=== PATIENT | female | born 1955 | race Caucasian/White ===

== ENCOUNTER 2016-09-09 18:35 | Emergency (ER) ==
[2016-09-09 18:40] VITALS: BP 178/82; TEMP 97.7; BMI 34.7
[2016-09-09] MEDS ORDERED: DILAUDID 1 MG/ML SYRINGE IM STA (18:57)
[2016-09-09] MEDS ORDERED: PHENERGAN 25 MG/ML VIAL IM STA (18:57)
--- NOTE | 2016-09-09 19:00 | ED.PDOC ---
General ED Provider: Dr. MELANI STOLL-ER Chief Complaint: Back Pain Stated Complaint: my back is acting up--i will see pain managment this week-- denies urinary symptoms or blood in the urine Time Seen by Physician: 18:59 Mode of Arrival: Walk-In Information Source: Patient Exam Limitations: No limitations Primary Care Provider: JAS NATARAJAN Nursing and Triage Documentation Reviewed and Agree: Yes Musculoskeletal Complaint Exam - Back Pain Complaint/Exam Mechanism of Injury: Reports: No known trauma Onset/Duration: several days Symptoms Are: Still present Timing: Constant Initial Severity: Mild Current Severity: Moderate Location: Reports: Discrete (lumbar spine) Character: Reports: Dull, Aching Aggravating: Reports: Movements, Lifting, Bending, Walking Alleviating: Reports: None Associated Signs and Symptoms: Denies: Swelling, Redness, Bruising, Fever, Weakness, Numbness, Tingling, Abdominal pain, Flank pain, Bladder incontinence, Bowel incontinence, Weight loss, Pain with weight bearing Epidural Abcess Risk Factors: Reports: None Focal Tenderness: Yes Paraspinal Muscle Tenderness: Yes Paraspinal Muscle Spasm: No Scoliosis: No Lordosis: No Kyphosis: No SLR Test: Right Negative, Left Negative Hip Motion Testing Pain: Right Negative, Left Negative Focal Weakness: Present: None Focal Sensory Loss: Present: None Gait: Present: Abnormal Differential Diagnoses: Strain, Sprain, Other (chronic low back pain) Review of Systems - Review Of Systems Constitutional: Reports: No symptoms Eyes: Reports: No symptoms Ears, Nose, Mouth, Throat: Reports: No symptoms Respiratory: Reports: No symptoms Cardiac: Reports: No symptoms GI: Reports: No symptoms : Reports: No symptoms Musculoskeletal: Reports: Back pain Skin: Reports: No symptoms Neurological: Reports: No symptoms Endocrine: Reports: No symptoms Hematologic/Lymphatic: Reports: No symptoms All Other Systems: Reviewed and Negative Past Medical History - Past Medical History Endocrine: Reports: DM 1, Dyslipidemia Cardiovascular: Reports: Hypertension, CHF (Peripheral artery disease) Respiratory: Reports: COPD, Asthma, Bronchitis, Pneumonia (05/07/13 Community acquired pneumonia) Hematological: Reports: None Gastrointestinal: Reports: GERD Genitourinary: Reports: UTI (pyelonephritis) Neuro/Psych: Reports: Anxiety, Depression, Other (disk disease.-NEUROPATHY) Musculoskeletal: Reports: Back Pain (chronic low back pain--followed by pain managment) Cancer: Reports: None Last Menstrual Period: menopause Other Pertinent Past Medical History: Furunculosis and Carbunculosis, Chronic Dysphagia,Peripheral artery disease - Surgical History General Surgical History: Reports: Orthopedic (Fracture of proximal humerus left , SEPTEMBER 2013), Other (STENT IN PELVIS (femoral stent)) - Family History Family History: Reports: Heart, Hypertension, Diabetes, Kidney, Other (mobidly obese) - Social History Smoking Status: Current every day smoker, Light tobacco smoker Hx Substance Use: No Alcohol Screening: None Lives: With family Physical Exam - Physical Exam Appearance: Well-appearing, No pain distress, Well-nourished Pain Distress: Moderate Eyes: ZARA, EOMI, Conjunctiva clear ENT: Ears normal, Nose normal, Oropharynx normal Neck: Supple Respiratory: Airway patent, Breath sounds clear, Breath sounds equal, Respirations nonlabored Cardiovascular: RRR, Pulses normal, No rub, No murmur GI/: Soft, Nontender, No masses, Bowel sounds normal, No Organomegaly Musculoskeletal: Normal strength, ROM intact, No edema, No calf tenderness Skin: Warm, Dry, Normal color Neurological: Sensation intact, Motor intact, Reflexes intact, Cranial nerves intact, Alert, Oriented Psychiatric: Affect appropriate, Mood appropriate Critical Care Note - Critical Care Note Total Time (mins): 0 Course - Course Orders, Labs, Meds: Orders Category Date Time Status Hydromorphone HCl [Dilaudid 1 mg/ml Syringe] MEDS 09/09/16 18:57 Stat 1 mg IM ONCE STA Promethazine HCl [Phenergan 25 mg/ml Vial] MEDS 09/09/16 18:57 Stat 25 mg IM ONCE STA Vital Signs: Temp Pulse Resp BP Pulse Ox 09/09/16 18:35 97.7 F 81 20 178/82 H 93 L Departure - Departure Time of Disposition: 19:01 Disposition: HOME SELF-CARE Discharge Problem: Chronic low back pain Qualifiers: Back pain laterality: midline Sciatica presence: without sciatica Qualifier Code: (M54.5) Low back pain Instructions: Chronic Back Pain (ED) Condition: Good Pt referred to PMD for follow-up: Yes Additional Instructions: keep appt with pain management this week Allergies/Adverse Reactions: [facility]ies [facility] Adverse Reaction (Verified 09/09/16 18:41) red dye Adverse Reaction (Verified 09/09/16 18:41) Home Medications: Ambulatory Orders Albuterol Sulfate 0.083% Neb [Albuterol 0.083% Neb] 1 vial NEB RTQ8H PRN Aspirin [Aspirin EC] 325 mg PO DAILYWM 05/07/13 Clonazepam [Klonopin] 1 mg PO BID 05/07/13 Clopidogrel Bisulfate [Clopidogrel] 75 mg PO DAILY 05/07/13 Enalapril Maleate [Vasotec] 2.5 mg PO BID PRN 05/07/13 Fenofibrate,Micronized [Fenofibrate] 134 mg PO BEDTIME 05/07/13 Folic Acid/Mv,Fe,Other Min [One Daily For Women Tablet] 1 tab PO DAILY 05/07/13 Furosemide [Lasix Tab] 20 mg PO BIDAC 05/07/13 Gabapentin [Neurontin] 600 mg PO Q8H 05/07/13 Magnesium Oxide [Mag-Ox] 400 mg PO BID 05/07/13 Pantoprazole Sodium [Protonix] 40 mg PO QDAC 05/07/13 Potassium Chloride [Klor-Con 10] 10 meq PO DAILY 05/07/13 Ropinirole HCl [Requip] 0.25 mg PO TID 05/07/13 Hydrocodone Bit/Acetaminophen [[place] 10-325] 10 - 325 mg PO QID PRN 06/10/13 Albuterol Sulfate [Proair Hfa] 2 puff INH Q4H PRN 11/25/13 Fluticasone Propionate [Flonase] 2 spray NS DAILY 11/25/13 Sitagliptin Phosphate [Januvia] 1 tab PO DAILY 11/25/13 Atorvastatin Calcium [Lipitor] 20 mg PO DAILY 01/15/14 Insulin Glargine,Hum.rec.anlog [Lantus] 24 units SQ BEDTIME 04/02/14 Insulin Glargine,Hum.rec.anlog [Lantus] 24 units SQ DAILY 08/12/14 Duloxetine HCl [Cymbalta] 20 mg PO DAILY 11/19/14 Insulin Lispro [Humalog] 1 unit SUBCUT DAILY PRN 04/30/15 Disposition Discussed With: Patient
== END 2016-09-09 19:38 | disposition home or self-care (01) ==
LOC: ED 18:35
DX: M54.5 Low back pain (principal); F17.210 Nicotine dependence, cigarettes, uncomplicated
CPT/HCPCS: 96372; 99282

== ENCOUNTER 2017-03-16 13:16 | Outpatient (CLI) ==
[2017-03-16 13:38] LABS: BASOPHILS % (AUTO) 0.3 % (0.0-3.0); EOSINOPHILS # (AUTO) 0.2 K/ul (0.0-0.7); EOSINOPHILS % (AUTO) 2.4 % (0.0-7.0); HEMATOCRIT 43.3 % (37.0-47.0); HEMOGLOBIN 14.5 g/dl (12.0-16.0); IMMATURE GRANULOCYTE % (AUTO) 0.3 % (0.0-5.0); LYMPHOCYTES # (AUTO) 2.5 K/uL (0.60-3.4); LYMPHOCYTES % (AUTO) 25.5 (10.0-50.0); MEAN CORPUSCULAR HEMOGLOBIN 28.3 pg (27.0-31.0); MEAN CORPUSCULAR HGB CONC 33.5 (31.8-35.4); MEAN CORPUSCULAR VOLUME 84.6 fl (81.0-99.0); MONOCYTES # (AUTO) 0.9 K/uL (0.4-2.0); MONOCYTES % (AUTO) 9.3 (0-10); NEUTROPHILS % (AUTO) 62.2; PLATELET COUNT 226 10^3/uL (140-440); RED BLOOD COUNT 5.12 10^6/ul (4.20-5.40); WHITE BLOOD COUNT 9.65 K/ul (4.6-10.2)
[2017-03-16 13:57] LABS: ALBUMIN 3.2 g/dL (3.4-5.0); ALBUMIN/GLOBULIN RATIO 0.89; ANION GAP 12.1; BILIRUBIN,TOTAL 0.65 mg/dL (0.00-1.20); BUN/CREATININE RATIO 8.97; CALCIUM 9.6 mg/dL (8.2-10.2); CHOL/HDL RATIO 6.5 (4.5-5.5); CREATININE 0.78 mg/dL (0.60-1.30); POTASSIUM 3.1 mmol/L (3.5-5.10); TOTAL PROTEIN 6.8 g/dL (5.8-8.1)
== END 2017-03-16 13:17 | disposition home or self-care (01) ==
LOC: RAD 13:16 → LAB 13:17
PROVIDERS: ATTEND Physician Assistant
DX: I73.9 Peripheral vascular disease, unspecified (principal); R06.00 Dyspnea, unspecified; R60.0 Localized edema; E11.9 Type 2 diabetes mellitus without complications
CPT/HCPCS: 36415; 80053; 80061; 83036; 85025

== ENCOUNTER 2017-03-16 13:52 | Emergency (ER) | payer OTHER ==
[2017-03-16 13:59] VITALS: BP 144/83; TEMP 99.1; BMI 34.8
--- NOTE | 2017-03-16 14:46 | ED.PDOC ---
General ED Provider: Dr. DEANDRA ARMSTRONG JR Chief Complaint: Cough Stated Complaint: 6 days ago developed cough with sl yellow sputum--sometime is non-productive--voice is hoarse--sl fever this past weekend. [ End ]99.1 94 20 93% 144/83 8 TYLENOL NORCO for pain Time Seen by Physician: 14:45 Mode of Arrival: Walk-In Information Source: Patient Exam Limitations: No limitations Primary Care Provider: TAMERA LAIRD Nursing and Triage Documentation Reviewed and Agree: No Review of Systems - Review Of Systems Constitutional: Reports: Chills, Malaise, Weakness Eyes: Reports: No symptoms Ears, Nose, Mouth, Throat: Reports: No symptoms Respiratory: Reports: Cough, Short of air, Other Cardiac: Reports: No symptoms GI: Reports: No symptoms : Reports: No symptoms Musculoskeletal: Reports: No symptoms Skin: Reports: No symptoms Neurological: Reports: No symptoms Endocrine: Reports: No symptoms Hematologic/Lymphatic: Reports: No symptoms All Other Systems: Other Past Medical History - Past Medical History Endocrine: Reports: DM 1, Dyslipidemia Cardiovascular: Reports: Hypertension, CHF (Peripheral artery disease) Respiratory: Reports: COPD, Asthma, Bronchitis, Pneumonia (05/07/13 Community acquired pneumonia) Hematological: Reports: None Gastrointestinal: Reports: GERD Genitourinary: Reports: UTI (pyelonephritis) Neuro/Psych: Reports: Anxiety, Depression, Other (disk disease.-NEUROPATHY) Musculoskeletal: Reports: Arthritis, Back Pain (chronic low back pain--followed by pain managment) Cancer: Reports: None Last Menstrual Period: menopause Other Pertinent Past Medical History: Furunculosis and Carbunculosis, Chronic Dysphagia,Peripheral artery disease - Surgical History General Surgical History: Reports: Orthopedic (Fracture of proximal humerus left , SEPTEMBER 2013), Other (STENT IN PELVIS (femoral stent)) - Family History Family History: Reports: Heart, Hypertension, Diabetes, Kidney, Other (mobidly obese) - Social History Smoking Status: Current every day smoker, Light tobacco smoker Hx Substance Use: No Alcohol Screening: None Physical Exam - Physical Exam Appearance: Ill-appearing, Obese Ill-appearing: Moderate Pain Distress: Moderate Eyes: ZARA, EOMI, Conjunctiva clear ENT: Ears normal, Nose normal, Oropharynx normal Neck: Supple Respiratory: Airway patent, Breath sounds equal, Crackles, Rhonchi, Wheezes Cardiovascular: RRR, Pulses normal, No rub, No murmur GI/: Soft, Nontender, No masses, Bowel sounds normal, No Organomegaly Musculoskeletal: Normal strength, ROM intact, No edema, No calf tenderness Skin: Warm, Dry, Normal color Neurological: Sensation intact, Motor intact, Reflexes intact, Cranial nerves intact, Alert, Oriented Psychiatric: Affect appropriate, Mood appropriate Critical Care Note - Critical Care Note Total Time (mins): 10 Course - Course Orders, Labs, Meds: Lab Review 03/16/17 03/16/17 15:50 15:50 Urine Color Yellow Urine Clarity Clear Urine pH 5.5 Ur Specific [place] 1.020 Urine Protein 1+ Urine Glucose (UA) Negative Urine Ketones Negative Urine Blood Negative Urine Nitrite Negative Urine Bilirubin Negative Urine Urobilinogen 1.0 Ur Leukocyte Esterase Trace Urine Microscopic RBC 0-2 Urine Microscopic WBC 2-5 Ur Squamous Epith Cells 5-10 Urine Bacteria 1+ Urine Mucus 1+ Urine Opiates Screen Positive Ur Oxycodone Screen Negative Urine Methadone Screen Negative Ur Propoxyphene Screen Negative Ur Barbiturates Screen Negative U Tricyclic Antidepress Negative Ur Phencyclidine Scrn Negative Ur Amphetamine Screen Negative U Methamphetamines Scrn Negative U Benzodiazepines Scrn Negative Urine Cocaine Screen Positive U Cannabinoids Screen Negative Orders Category Date Time Status DRUG SCREEN (RAPID FOR ED) [DRUG SCREEN, URINE, RAPID] LAB 03/16/17 15:50 Completed Stat UA [URINALYSIS C & S IF INDICATED] Stat LAB 03/16/17 15:50 Completed URINE CULTURE Stat LAB 03/16/17 16:53 Received CHEST, 2 VIEWS PA & LAT Stat RADS 03/16/17 15:33 Completed Vital Signs: Temp Pulse Resp BP Pulse Ox 03/16/17 13:52 99.1 F 94 H 20 144/83 H 93 L Departure - Departure Time of Disposition: 17:20 Disposition: HOME SELF-CARE Discharge Problem: Pneumonia Instructions: How to Stop Smoking (ED) Condition: Good Pt referred to PMD for follow-up: Yes Prescriptions: Amoxicillin/Potassium Clav [Augmentin 875-125 mg Tab] 1 tab PO BIDWM #14 tablet Guaifenesin/Dm/Pseudoephedrine [Desgen Dm Tablet] 1 each PO BID PRN #30 tablet PRN Reason: Cough Allergies/Adverse Reactions: Allergies aripiprazole [From [facility]] Adverse Reaction (Verified 03/16/17 14:02) red dye Adverse Reaction (Verified 03/16/17 14:02) Home Medications: Ambulatory Orders Albuterol Sulfate 0.083% Neb [Albuterol 0.083% Neb] 1 vial NEB RTQ8H PRN Aspirin [Aspirin EC] 325 mg PO DAILYWM 05/07/13 Clonazepam [Klonopin] 1 mg PO BID 05/07/13 Clopidogrel Bisulfate [Clopidogrel] 75 mg PO DAILY 05/07/13 Enalapril Maleate [Vasotec] 2.5 mg PO BID PRN 05/07/13 Fenofibrate,Micronized [Fenofibrate] 134 mg PO BEDTIME 05/07/13 Folic Acid/Mv,Fe,Other Min [One Daily For Women Tablet] 1 tab PO DAILY 05/07/13 Furosemide [Lasix Tab] 20 mg PO BIDAC 05/07/13 Gabapentin [Neurontin] 600 mg PO Q8H 05/07/13 Magnesium Oxide [Mag-Ox] 400 mg PO BID 05/07/13 Pantoprazole Sodium [Protonix] 40 mg PO QDAC 05/07/13 Potassium Chloride [Klor-Con 10] 10 meq PO DAILY 05/07/13 Ropinirole HCl [Requip] 0.25 mg PO TID 05/07/13 Hydrocodone Bit/Acetaminophen [[place] 10-325] 10 - 325 mg PO QID PRN 06/10/13 Albuterol Sulfate [Proair Hfa] 2 puff INH Q4H PRN 11/25/13 Fluticasone Propionate [Flonase] 2 spray NS DAILY 11/25/13 Sitagliptin Phosphate [Januvia] 1 tab PO DAILY 11/25/13 Atorvastatin Calcium [Lipitor] 20 mg PO DAILY 01/15/14 Insulin Glargine,Hum.rec.anlog [Lantus] 24 units SQ BEDTIME 04/02/14 Insulin Glargine,Hum.rec.anlog [Lantus] 24 units SQ DAILY 08/12/14 Duloxetine HCl [Cymbalta] 20 mg PO DAILY 11/19/14 Insulin Lispro [Humalog] 1 unit SUBCUT DAILY PRN 04/30/15 Amoxicillin/Potassium Clav [Augmentin 875-125 mg Tab] 1 tab PO BIDWM #14 tablet 03/16/17 Guaifenesin/Dm/Pseudoephedrine [Desgen Dm Tablet] 1 each PO BID PRN #30 tablet 03/16/17
--- NOTE | 2017-03-16 15:59 | DI ---
EXAM: Chest two view, frontal and lateral views. HISTORY: Cough. COMPARISON: 08/14/2014. FINDINGS: The heart size is normal. Atherosclerotic calcifications are present. There is no pulmon alicia vascular congestion. The lungs are clear. No pleural effusion or pneumothorax is seen. No acut e osseous abnormality identified. Since the prior study, there has been no significant interval huang ge. IMPRESSION: No acute cardiopulmonary process.
[2017-03-16 16:32] LABS: COCAIN SCREEN,URINE POSITIVE (NEGATIVE)
[2017-03-16 16:45] LABS: BILIRUBIN,URINE Negative (NEGATIVE); KETONES,URINE Negative (NEGATIVE); LEUKOCYTE ESTERASE ,URINE Trace (NEGATIVE); NITRITE,URINE Negative (NEGATIVE); PH,URINE 5.5 (5-9); PROTEIN,URINE 1+ (NEGATIVE); URINE, BLOOD Negative (NEGATIVE)
[2017-03-16 16:46] LABS: ADD URINE MICROSCOPIC YES
[2017-03-16 16:52] LABS: BACTERIA,URINE 1+ (NOT PRESENT)
== END 2017-03-16 17:22 | disposition home or self-care (01) ==
LOC: ED 13:52
DX: J18.9 Pneumonia, unspecified organism (principal); R06.02 Shortness of breath; E10.9 Type 1 diabetes mellitus without complications; E78.5 Hyperlipidemia, unspecified; I10 Essential (primary) hypertension; I50.9 Heart failure, unspecified; J44.9 Chronic obstructive pulmonary disease, unspecified; F17.210 Nicotine dependence, cigarettes, uncomplicated; Z79.899 Other long term (current) drug therapy
CPT/HCPCS: 36415; 80053; 80061; 80306; 81001; 83036; 85025; 87086; 99283

== ENCOUNTER 2017-03-18 06:25 | Outpatient (CLI) ==
--- NOTE | 2017-03-18 08:58 | ECHO2D ---
Date of Exam: 03/18/17 Ordering Physician: TAMERA LAIRD Room #: OP Reason for Echo: DYSPNEA, PERIPHERAL VASCULAR DISEASE, EDEMA M-Mode Normal Adult Results LV Dimensions Normal Adult Results AoV Opening excursions >1.6 >1.6 LVEDD-base- 3.5-5.8 5.2 Ao root dimensions 2.0-3.7 3.1 LVESD-base- 3.1-4.6 L. Atrium dimensions 1.9-3.8 4.3 Post. Wall thickness 0.8-1.1 1.2 IV septum (thickness) 0.7-1.2 1.2 Post. Wall excursion 0.72-1.3 NORMAL Septal motion NORMAL Systolic motion R. Ventricular cavity 1.5-2.0 NORMAL LVEF 60% 58% Paradoxical septal wall motion NORMAL 2-D : NORMAL LEFT VENTRICULAR CONTRACTILITY--ENLARGED LEFT ATRIAL CAVITY-- CALCIFIC MITRAL VALVE ANNULUS--NO EFFUSION, NO THROMBUS M-MODE: MV: CALCIFIC MITRAL VALVE ANNULUS AV: NORMAL TV: NORMAL PV: CHAMBER SIZE: ENLARGED LEFT ATRIAL CAVITY WALL MOTION: NORMAL PERICARDIUM: NORMAL INTERPRETATION: 1. BORDERLINE LEFT VENTRICULAR HYPERTROPHY WITH ENLARGED LEFT ATRIAL CAVITY 2. NORMAL LEFT VENTRICULAR CONTRACTILITY 3. CALCIFIC MITRAL VALVE ANNULUS MTDD
== END 2017-03-18 06:26 | disposition home or self-care (01) ==
LOC: CAR 06:25
PROVIDERS: ATTEND Physician Assistant
DX: I73.9 Peripheral vascular disease, unspecified (principal); R06.00 Dyspnea, unspecified; R60.0 Localized edema

== ENCOUNTER 2017-06-15 09:00 | Emergency (ER) ==
[2017-06-15 09:15] VITALS: BP 160/81; TEMP 98.2; BMI 34.5
--- NOTE | 2017-06-15 09:45 | DI ---
Exam: Two x-rays of the chest. Comparison: 05/14/2017. Reason for exam: Cough. FINDINGS: No pneumothorax, pleural effusion, or focal consolidation. The cardiac silhouette is not enlarged. The imaged osseous structures appear grossly unremarkable without acute fracture. Impression: No acute cardiopulmonary process.
--- NOTE | 2017-06-15 10:10 | ED.PDOC ---
General ED Provider: Dr. BRYAN LILLY Chief Complaint: Respiratory Complaint Stated Complaint: cough Time Seen by Physician: 09:02 Mode of Arrival: Walk-In Information Source: Patient Exam Limitations: No limitations Primary Care Provider: TAMERA LAIRD Nursing and Triage Documentation Reviewed and Agree: Yes Respiratory Complaint Exam - Respiratory Complaint/Exam Onset/Duration: 1week of cough Symptoms Are: Resolved Timing: Intermittent Initial Severity: Mild Current Severity: Mild Location: Nose, Throat, Chest Character: Reports: Non-productive cough Aggravating: Reports: Weather Alleviating: Reports: Spontaneous resolution Associated Signs and Symptoms: Reports: Nasal congestion. Denies: Rapid breathing, Dyspnea, Fever, Chills, Chest pain, Pleuritic chest pain, Wheezing, Hemoptysis, Dizziness, Calf pain, Calf swelling, Edema, URI, Hoarseness, Sinus discomfort, Vomiting, Sore throat, Weight loss, Decreased oral intake, Increased thirst, Increased appetite, Increased urination Related History: Reports: Similar episode History of Healthcare-Acquired Pneumonia: No Related Surgical History: Reports: None Pulmonary Embolism Risk Factors: Smoking Pseudomonas Risk Factors: Reports: None Tuberculosis Risk Factors: Reports: Smoking Status Asthmaticus Risk Factors: Reports: None Home Oxygen Use: No Recent Stress Test: No Recent Echo/LV Function: No Current Antibiotic Use: No Current Asthma Medication Use: No Respiratory Distress: None Inadequate Respiratory Effort: No Dysphagia Present: No Stridor Present: No JVD Present: No Retractions: Not Present Diminished Breath Sounds: No Grunting Respirations: No Kussmaul Respirations: No Differential Diagnoses: Pneumonia, Bronchitis Review of Systems - Review Of Systems Constitutional: Reports: No symptoms Eyes: Reports: No symptoms Ears, Nose, Mouth, Throat: Reports: No symptoms Respiratory: Reports: Cough Cardiac: Reports: No symptoms GI: Reports: No symptoms : Reports: No symptoms Musculoskeletal: Reports: No symptoms Skin: Reports: No symptoms Neurological: Reports: No symptoms Endocrine: Reports: No symptoms Hematologic/Lymphatic: Reports: No symptoms All Other Systems: Reviewed and Negative Past Medical History - Past Medical History Previously Healthy: Yes Endocrine: Reports: DM 1, Dyslipidemia Cardiovascular: Reports: Hypertension, CHF (Peripheral artery disease) Respiratory: Reports: COPD, Asthma, Bronchitis, Pneumonia (05/07/13 Community acquired pneumonia) Hematological: Reports: None Gastrointestinal: Reports: GERD Genitourinary: Reports: UTI (pyelonephritis) Neuro/Psych: Reports: Anxiety, Depression, Other (disk disease.-NEUROPATHY) Musculoskeletal: Reports: Arthritis, Back Pain Cancer: Reports: None Last Menstrual Period: unknown Other Pertinent Past Medical History: Furunculosis and Carbunculosis, Chronic Dysphagia,Peripheral artery disease - Surgical History General Surgical History: Reports: Orthopedic (Fracture of proximal humerus left , SEPTEMBER 2013), Other (STENT IN PELVIS (femoral stent)) - Family History Family History: Reports: Heart, Hypertension, Diabetes, Kidney, Other (mobidly obese) - Social History Smoking Status: Current every day smoker, Light tobacco smoker Hx Substance Use: No Alcohol Screening: None Physical Exam - Physical Exam Appearance: Well-appearing, No pain distress, Well-nourished Eyes: ZARA, EOMI, Conjunctiva clear ENT: Ears normal, Nose normal, Oropharynx normal Respiratory: Airway patent, Breath sounds clear, Breath sounds equal, Respirations nonlabored Cardiovascular: RRR, Pulses normal, No rub, No murmur GI/: Soft, Nontender, No masses, Bowel sounds normal, No Organomegaly Musculoskeletal: Normal strength, ROM intact, No edema, No calf tenderness Skin: Warm, Dry, Normal color Neurological: Sensation intact, Motor intact, Reflexes intact, Cranial nerves intact, Alert, Oriented Psychiatric: Affect appropriate, Mood appropriate Critical Care Note - Critical Care Note Total Time (mins): 0 Course - Course Orders, Labs, Meds: Orders Category Date Time Status CHEST, 2 VIEWS PA & LAT Stat RADS 06/15/17 09:10 Completed Vital Signs: Temp Pulse Resp BP Pulse Ox 06/15/17 09:02 98.2 F 94 H 20 160/81 H 93 L Departure - Departure Time of Disposition: 10:10 Disposition: HOME SELF-CARE Discharge Problem: Bronchitis Instructions: Acute Bronchitis (ED) Condition: Good Pt referred to PMD for follow-up: Yes Additional Instructions: Please call your Family Physician as soon as possible to schedule a follow-up appointment. Allergies/Adverse Reactions: Allergies aripiprazole [From [facility]] Adverse Reaction (Verified 06/15/17 09:10) red dye Adverse Reaction (Verified 06/15/17 09:10) Home Medications: Ambulatory Orders Albuterol Sulfate 0.083% Neb [Albuterol 0.083% Neb] 1 vial NEB RTQ8H PRN Aspirin [Aspirin EC] 325 mg PO DAILYWM 05/07/13 Clonazepam [Klonopin] 1 mg PO BID 05/07/13 Clopidogrel Bisulfate [Clopidogrel] 75 mg PO DAILY 05/07/13 Enalapril Maleate [Vasotec] 2.5 mg PO BID PRN 05/07/13 Fenofibrate,Micronized [Fenofibrate] 134 mg PO BEDTIME 05/07/13 Folic Acid/Multivit,Iron,Lumber Sorter Machine [One Daily For Women Tablet] 1 tab PO DAILY 05/07 Furosemide [Lasix Tab] 20 mg PO BIDAC 05/07/13 Gabapentin [Neurontin] 600 mg PO Q8H 05/07/13 Magnesium Oxide [Mag-Ox] 400 mg PO BID 05/07/13 Pantoprazole Sodium [Protonix] 40 mg PO QDAC 05/07/13 Potassium Chloride [Klor-Con 10] 10 meq PO DAILY 05/07/13 Ropinirole HCl [Requip] 0.25 mg PO TID 05/07/13 Hydrocodone Bit/Acetaminophen [[place] 10-325] 10 - 325 mg PO QID PRN 06/10/13 Albuterol Sulfate [Proair Hfa] 2 puff INH Q4H PRN 11/25/13 Fluticasone Propionate [Flonase] 2 spray NS DAILY 11/25/13 Sitagliptin Phosphate [Januvia] 1 tab PO DAILY 11/25/13 Atorvastatin Calcium [Lipitor] 20 mg PO DAILY 01/15/14 Insulin Glargine,Hum.rec.anlog [Lantus] 24 units SQ BEDTIME 04/02/14 Duloxetine HCl [Cymbalta] 20 mg PO DAILY 11/19/14 Insulin Lispro [Humalog] 1 unit SUBCUT DAILY PRN 04/30/15 Guaifenesin/Dm/Pseudoephedrine [Desgen Dm Tablet] 1 each PO BID PRN #30 tablet 03/16/17 Disposition Discussed With: Patient
== END 2017-06-15 10:22 | disposition home or self-care (01) ==
LOC: ED 09:00
DX: J20.9 Acute bronchitis, unspecified (principal); F17.210 Nicotine dependence, cigarettes, uncomplicated
CPT/HCPCS: 99282

== ENCOUNTER 2018-12-30 22:34 | Emergency (ER) ==
[2018-12-30 22:45] VITALS: BP 148/72; TEMP 99.3; BMI 33.4
[2018-12-30] MEDS: ZOFRAN 4 MG/2 ML IM STA (23:18)
[2018-12-30] MEDS: DILAUDID 1 MG/ML SYRINGE IM STA (23:18)
--- NOTE | 2018-12-30 23:49 | CT ---
EXAM: CT scan lumbar spine HISTORY: Back pain COMPARISON: None. FINDINGS: Contiguous axial images obtained through the lumbar spine utilizing 3-mm collimation. Sag ittal and coronal reconstructions were imaged and reviewed.. There is 3.1 mm retrolisthesis L1/L2 wi th degenerative disc disease L1-L2.. The vertebral bodies are normal in height At L1-L2 there is a moderate disc bulge with facet arthropathy narrowing the central canal and bilateral neural foramen.A t L2-L3 there is a concentric disc bulge with facet arthropathy causing early triangulation of the c entral canal. The neural foramen are patent. At L3-L4 there is triangulation of the central canal w ith bilateral neural foraminal narrowing. At L4-L5 there is a concentric disc bulge with likely righ t foraminal disc with associated facet arthropathy. There is narrowing of the central canal, bilater al neural foramen and right lateral recess. At L5-S1 there is moderate concentric disc bulge with mo derate facet arthropathy narrowing both neural foramen and lateral recess. IMPRESSION: Degenerate disc disease L1-L2. "Multilevel central canal and foraminal stenosis as described.
--- NOTE | 2018-12-31 00:19 | ED.PDOC ---
General ED Provider: Dr. MELANI STOLL-ER Chief Complaint: Back Pain Stated Complaint: my back hurts Time Seen by Physician: 22:40 Mode of Arrival: Walk-In Information Source: Patient Exam Limitations: No limitations Primary Care Provider: CLAUDINE SHI Nursing and Triage Documentation Reviewed and Agree: Yes Does patient meet sepsis criteria?: No System Inflammatory Response Syndrome: Not Applicable Sepsis Protocol: For patient's 13 years and over: Temp is 96.8 and below OR 101 and greater Pulse >90 BPM Resp >20/minute Acutely Altered Mental Status Are patient's symptoms suggestive of a new infection, such as: -Pneumonia -Skin, Soft Tissue -Endocarditis -UTI -Bone, Joint Infection -Implantable Device -Acute Abdominal Infection -Wound Infection -Meningitis -Blood Stream Catheter Infection -Unknown Musculoskeletal Complaint Exam - Back Pain Complaint/Exam Mechanism of Injury: Reports: No known trauma Onset/Duration: several mos Symptoms Are: Still present Timing: Constant Initial Severity: Mild Current Severity: Moderate Location: Reports: Discrete Character: Reports: Dull, Aching Aggravating: Reports: Movements, Lifting, Bending, Walking Associated Signs and Symptoms: Denies: Swelling, Redness, Bruising, Fever, Weakness, Numbness, Tingling, Abdominal pain, Flank pain, Bladder incontinence, Bowel incontinence, Weight loss, Pain with weight bearing AAA Risk Factors: Reports: None Cauda Equina Risk Factors: Reports: None Epidural Abcess Risk Factors: Reports: None Related Surgical History: Reports: None Focal Tenderness: Yes Paraspinal Muscle Tenderness: No Paraspinal Muscle Spasm: No Scoliosis: No Lordosis: No Kyphosis: No SLR Test: Right Negative, Left Negative Hip Motion Testing Pain: Right Negative, Left Negative Focal Weakness: Present: None Focal Sensory Loss: Present: None Gait: Present: Abnormal Differential Diagnoses: Herniated Disk Review of Systems - Review Of Systems Constitutional: Reports: No symptoms Eyes: Reports: No symptoms Ears, Nose, Mouth, Throat: Reports: No symptoms Respiratory: Reports: No symptoms Cardiac: Reports: No symptoms GI: Reports: No symptoms : Reports: No symptoms Musculoskeletal: Reports: Back pain Skin: Reports: No symptoms Neurological: Reports: No symptoms Endocrine: Reports: No symptoms Hematologic/Lymphatic: Reports: No symptoms All Other Systems: Reviewed and Negative Past Medical History - Past Medical History Previously Healthy: Yes Endocrine: Reports: DM 1, Dyslipidemia Cardiovascular: Reports: Hypertension, CHF (Peripheral artery disease) Respiratory: Reports: COPD, Asthma, Bronchitis, Pneumonia (05/07/13 Community acquired pneumonia) Hematological: Reports: None Gastrointestinal: Reports: GERD Genitourinary: Reports: UTI (pyelonephritis) Neuro/Psych: Reports: Anxiety, Depression, Other (disk disease.-NEUROPATHY) Musculoskeletal: Reports: Arthritis, Back Pain Cancer: Reports: None Last Menstrual Period: menopausal at 37 y/o Other Pertinent Past Medical History: Furunculosis and Carbunculosis, Chronic Dysphagia,Peripheral artery disease - Surgical History General Surgical History: Reports: Orthopedic (Fracture of proximal humerus left , SEPTEMBER 2013), Other (STENT IN PELVIS (femoral stent)) - Family History Family History: Reports: Heart, Hypertension, Diabetes, Kidney, Other (mobidly obese) - Social History Smoking Status: Current every day smoker, Light tobacco smoker Hx Substance Use: No Alcohol Screening: Occasionally - Immunizations Tetanus Shot up to Date: Yes Physical Exam - Physical Exam Appearance: Well-appearing Eyes: ZARA ENT: Ears normal, Nose normal, Oropharynx normal Neck: Supple Respiratory: Airway patent, Breath sounds clear, Breath sounds equal, Respirations nonlabored Cardiovascular: RRR, Pulses normal, No rub, No murmur GI/: Soft, Nontender, No masses, Bowel sounds normal, No Organomegaly Musculoskeletal: Limited ROM Skin: Warm, Dry, Normal color Neurological: Sensation intact, Motor intact, Reflexes intact, Cranial nerves intact, Alert, Oriented Psychiatric: Affect appropriate, Mood appropriate Interpretation - Radiology Interpretation Radiology Interpretation By: Radiologist Radiology Results: Positive Exam Interpreted: CT Scan Critical Care Note - Critical Care Note Total Time (mins): 0 Course - Course Orders, Labs, Meds: Orders Category Date Time Status Hydromorphone HCl [Dilaudid 1 mg/ml Syringe] MEDS 12/30/18 23:09 Discontinued 1 mg IM ONCE STA Ondansetron HCl/Pf [Zofran 4 mg/2 ml] MEDS 12/30/18 23:10 Discontinued 4 mg IM ONCE STA CT LUMBAR SPINE W/O CONTRAST Stat RADS 12/30/18 23:05 Completed Medications Discontinued Medications Generic Name Dose Route Start Last Admin Trade Name Freq PRN Reason Stop Dose Admin Hydromorphone HCl 1 mg 12/30/18 23:09 12/30/18 23:18 Dilaudid 1 Mg/Ml Syringe IM 12/30/18 23:10 1 mg ONCE STA Administration Ondansetron HCl 4 mg 12/30/18 23:10 12/30/18 23:18 Zofran 4 Mg/2 Ml IM 12/30/18 23:11 4 mg ONCE STA Administration Vital Signs: Temp Pulse Resp BP Pulse Ox 12/30/18 22:34 99.3 F 68 18 148/72 H 95 Departure - Departure Time of Disposition: 00:19 Disposition: HOME SELF-CARE Discharge Problem: Lumbar sprain Instructions: Lumbar Spinal Stenosis (ED) Condition: Good Pt referred to PMD for follow-up: Yes IPMP verified?: No Prescriptions: Hydrocodone Bit/Acetaminophen [Paulina 5-325] 1 each PO Q4HR #10 tablet Hydrocodone Bit/Acetaminophen [Paulina 5-325] 1 each PO Q4HR #10 tablet Allergies/Adverse Reactions: Allergies aripiprazole [From [facility]] Adverse Reaction (Verified 12/30/18 22:45) red dye Adverse Reaction (Verified 12/30/18 22:45) Home Medications: Ambulatory Orders Albuterol Sulfate 0.083% Neb [Albuterol 0.083% Neb] 1 vial NEB RTQ8H PRN Clopidogrel Bisulfate [Clopidogrel] 75 mg PO DAILY 05/07/13 Enalapril Maleate [Vasotec] 10 mg PO BID 05/07/13 Furosemide [Lasix Tab] 20 mg PO BIDAC PRN 05/07/13 Magnesium Oxide [Mag-Ox] 400 mg PO BID 05/07/13 Potassium Chloride [Klor-Con 10] 10 meq PO BID 05/07/13 Ropinirole HCl [Requip] 1 mg PO TID 05/07/13 Albuterol Sulfate [Proair Hfa] 2 puff INH Q4H PRN 11/25/13 Fluticasone Propionate [Flonase] 2 spray NS DAILY PRN 11/25/13 Atorvastatin Calcium [Lipitor] 80 mg PO DAILY 01/15/14 Duloxetine HCl [Cymbalta] 60 mg PO DAILY 11/19/14 Aspirin [Aspirin EC] 81 mg PO DAILY 12/30/18 Diltiazem HCl [Cardizem Cd] 180 mg PO DAILY 12/30/18 Insulin Aspart [Novolog Flexpen] 100 unit SQ DIRECTED PRN 12/30/18 Insulin Glargine,Hum.rec.anlog [Lantus Solostar] 10 unit SQ BID 12/30/18 Metoprolol Tartrate 50 mg PO BID 12/30/18 Naproxen Sodium 220 mg PO BID PRN 12/30/18 Pregabalin [Lyrica] 100 mg PO BID 12/30/18 Hydrocodone Bit/Acetaminophen [Paulina 5-325] 1 each PO Q4HR #10 tablet 12/31/18 Hydrocodone Bit/Acetaminophen [Paulina 5-325] 1 each PO Q4HR #10 tablet 12/31/18 Transfer Form Completed: No Disposition Discussed With: Patient
== END 2018-12-30 23:55 | disposition home or self-care (01) ==
LOC: ED 22:34
DX: S33.5XXA Sprain of ligaments of lumbar spine, initial encounter (principal); F17.210 Nicotine dependence, cigarettes, uncomplicated
CPT/HCPCS: 96372; 99283

== ENCOUNTER 2019-01-28 15:57 | Emergency (ER) | payer OTHER ==
[2019-01-28 15:58] VITALS: BMI 33.4
[2019-01-28 16:09] VITALS: BP 111/66; TEMP 97.1
--- NOTE | 2019-01-28 16:46 | ED.PDOC ---
General ED Provider: Dr. BRYAN LILLY Chief Complaint: Back Pain Stated Complaint: back pain Time Seen by Physician: 16:00 Mode of Arrival: Walk-In Information Source: Patient Exam Limitations: No limitations Primary Care Provider: CLAUDINE SHI Nursing and Triage Documentation Reviewed and Agree: Yes Does patient meet sepsis criteria?: No System Inflammatory Response Syndrome: Not Applicable Sepsis Protocol: For patient's 13 years and over: Temp is 96.8 and below OR 101 and greater Pulse >90 BPM Resp >20/minute Acutely Altered Mental Status Are patient's symptoms suggestive of a new infection, such as: -Pneumonia -Skin, Soft Tissue -Endocarditis -UTI -Bone, Joint Infection -Implantable Device -Acute Abdominal Infection -Wound Infection -Meningitis -Blood Stream Catheter Infection -Unknown Musculoskeletal Complaint Exam - Back Pain Complaint/Exam Mechanism of Injury: Reports: No known trauma Onset/Duration: chronic worse today Symptoms Are: Still present Timing: Constant Episodes Lasting: Hours Initial Severity: Moderate Current Severity: Moderate Location: Reports: Discrete Character: Reports: Aching Aggravating: Reports: Movements, Lifting, Bending, Walking Alleviating: Reports: Rest, Position Associated Signs and Symptoms: Denies: Swelling, Redness, Bruising, Fever, Weakness, Numbness, Tingling, Abdominal pain, Flank pain, Bladder incontinence, Bowel incontinence, Weight loss, Pain with weight bearing Related History: Reports: Similar episode TAD Risk Factors: Reports: Hypertension AAA Risk Factors: Reports: Hypertension Cauda Equina Risk Factors: Reports: None Epidural Abcess Risk Factors: Reports: None Related Surgical History: Reports: None Focal Tenderness: No Paraspinal Muscle Spasm: No Scoliosis: No Lordosis: No Kyphosis: No SLR Test: Right Negative, Left Negative Hip Motion Testing Pain: Right Negative, Left Negative Focal Weakness: Present: None Focal Sensory Loss: Present: None Gait: Present: Normal Differential Diagnoses: Strain, Sprain Review of Systems - Review Of Systems Constitutional: Reports: No symptoms Eyes: Reports: No symptoms Ears, Nose, Mouth, Throat: Reports: No symptoms Respiratory: Reports: No symptoms Cardiac: Reports: No symptoms GI: Reports: No symptoms : Reports: No symptoms Musculoskeletal: Reports: Back pain Skin: Reports: No symptoms Neurological: Reports: No symptoms Endocrine: Reports: No symptoms Hematologic/Lymphatic: Reports: No symptoms All Other Systems: Reviewed and Negative Past Medical History - Past Medical History Previously Healthy: Yes Endocrine: Reports: DM 1, Dyslipidemia Cardiovascular: Reports: Hypertension, CHF (Peripheral artery disease) Respiratory: Reports: COPD, Asthma, Bronchitis, Pneumonia (05/07/13 Community acquired pneumonia) Hematological: Reports: None Gastrointestinal: Reports: GERD Genitourinary: Reports: UTI (pyelonephritis) Neuro/Psych: Reports: Anxiety, Depression, Other (disk disease.-NEUROPATHY) Musculoskeletal: Reports: Arthritis, Back Pain Cancer: Reports: None Last Menstrual Period: unknown Other Pertinent Past Medical History: Furunculosis and Carbunculosis, Chronic Dysphagia,Peripheral artery disease - Surgical History General Surgical History: Reports: Orthopedic (Fracture of proximal humerus left , SEPTEMBER 2013), Other (STENT IN PELVIS (femoral stent)) - Family History Family History: Reports: Heart, Hypertension, Diabetes, Kidney, Other (mobidly obese) - Social History Smoking Status: Current every day smoker, Light tobacco smoker Hx Substance Use: No Alcohol Screening: Occasionally Physical Exam - Physical Exam Appearance: Well-appearing, No pain distress, Well-nourished Eyes: ZARA, EOMI, Conjunctiva clear ENT: Ears normal, Nose normal, Oropharynx normal Respiratory: Airway patent, Breath sounds clear, Breath sounds equal, Respirations nonlabored Cardiovascular: RRR, Pulses normal, No rub, No murmur GI/: Soft, Nontender, No masses, Bowel sounds normal, No Organomegaly Musculoskeletal: Normal strength, ROM intact, No edema, No calf tenderness Skin: Warm, Dry, Normal color Neurological: Sensation intact, Motor intact, Reflexes intact, Cranial nerves intact, Alert, Oriented Psychiatric: Affect appropriate, Mood appropriate Critical Care Note - Critical Care Note Total Time (mins): 0 Course - Course Vital Signs: Temp Pulse Resp BP Pulse Ox 01/28/19 15:58 97.1 F L 98 H 20 111/66 95 Departure - Departure Time of Disposition: 16:45 Disposition: HOME SELF-CARE Discharge Problem: Backache Sciatica Qualifiers: Laterality: left Qualified Code(s): M54.32 - Sciatica, left side Instructions: Sciatica (ED), Lumbar Radiculopathy (ED), Lower Back Exercises ( ED), Back Pain (ED) Condition: Good Pt referred to PMD for follow-up: Yes IPMP verified?: No Additional Instructions: Please call your Family Physician as soon as possible to schedule a follow-up appointment. Prescriptions: Hydrocodone Bit/Acetaminophen [Valier 10-325] 1 each PO Q6HR #10 tablet Allergies/Adverse Reactions: Allergies aripiprazole [From [facility]] Adverse Reaction (Verified 01/28/19 16:09) Home Medications: Ambulatory Orders Albuterol Sulfate 0.083% Neb [Albuterol 0.083% Neb] 1 vial NEB RTQ8H PRN Clopidogrel Bisulfate [Clopidogrel] 75 mg PO DAILY 05/07/13 Enalapril Maleate [Vasotec] 10 mg PO BID 05/07/13 Furosemide [Lasix Tab] 20 mg PO BIDAC PRN 05/07/13 Magnesium Oxide [Mag-Ox] 400 mg PO BID 05/07/13 Potassium Chloride [Klor-Con 10] 10 meq PO BID 05/07/13 Ropinirole HCl [Requip] 1 mg PO TID 05/07/13 Albuterol Sulfate [Proair Hfa] 2 puff INH Q4H PRN 11/25/13 Fluticasone Propionate [Flonase] 2 spray NS DAILY PRN 11/25/13 Atorvastatin Calcium [Lipitor] 80 mg PO DAILY 01/15/14 Duloxetine HCl [Cymbalta] 60 mg PO DAILY 11/19/14 Aspirin [Aspirin EC] 81 mg PO DAILY 12/30/18 Diltiazem HCl [Cardizem Cd] 180 mg PO DAILY 12/30/18 Insulin Aspart [Novolog Flexpen] 100 unit SQ DIRECTED PRN 12/30/18 Insulin Glargine,Hum.rec.anlog [Lantus Solostar] 10 unit SQ BID 12/30/18 Metoprolol Tartrate 50 mg PO BID 12/30/18 Naproxen Sodium 220 mg PO BID PRN 12/30/18 Pregabalin [Lyrica] 100 mg PO BID 12/30/18 Hydrocodone Bit/Acetaminophen [Valier 5-325] 1 each PO Q4HR #10 tablet 12/31/18 Hydrocodone Bit/Acetaminophen [Valier 5-325] 1 each PO Q4HR #10 tablet 12/31/18 Hydrocodone Bit/Acetaminophen [Valier 10-325] 1 each PO Q6HR #10 tablet 01/28/19
== END 2019-01-28 17:26 | disposition home or self-care (01) ==
LOC: ED 15:57
DX: M54.42 Lumbago with sciatica, left side (principal); I10 Essential (primary) hypertension; F17.210 Nicotine dependence, cigarettes, uncomplicated
CPT/HCPCS: 99282

== ENCOUNTER 2019-02-12 02:30 | Outpatient (CLI) | payer OTHER | END 2019-02-12 02:46 | disposition short-term general hospital (02) | LOC: AMBL 02:30 | PROVIDERS: ATTEND Internal Medicine Geriatric Medicine | DX: T42.8X2A Poisoning by antiparkinsonism drugs and other central muscle-tone depressants, intentional self-harm, initial encounter (principal); R41.0 Disorientation, unspecified; R40.4 Transient alteration of awareness; R73.9 Hyperglycemia, unspecified; R06.89 Other abnormalities of breathing; R40.2421 Glasgow coma scale score 9-12, in the field [EMT or ambulance] ==

== ENCOUNTER 2021-08-03 14:27 | Observation (INO) ==
--- NOTE | 2021-08-03 14:46 | ED.PDOC ---
General ED Provider: Dr. BOB BERMUDEZ Chief Complaint: Shortness of Air Stated Complaint: Out of her med for 3 days (lost the bag of med's), poor historian, hx COPD, HTN, T2DM, substance abuse. Time Seen by Provider: 08/03/21 14:46 Mode of Arrival: Ambulance Information Source: Patient and EMT Primary Care Provider: CLAUDINE SHI Nursing and Triage Documentation Reviewed and Agree: Yes Does patient meet sepsis criteria?: No System Inflammatory Response Syndrome: Not Applicable Sepsis Protocol: For patient's 13 years and over: Temp is 96.8 and below OR 101 and greater Pulse >90 BPM Resp >20/minute Acutely Altered Mental Status Are patient's symptoms suggestive of a new infection, such as: -Pneumonia -Skin, Soft Tissue -Endocarditis -UTI -Bone, Joint Infection -Implantable Device -Acute Abdominal Infection -Wound Infection -Meningitis -Blood Stream Catheter Infection -Unknown Respiratory Complaint Exam Shortness of Air Complaint/Exam Onset/Duration: few d Symptoms Are: Still present Timing: Intermittent Initial Severity: Moderate Current Severity: Moderate Character: Reports Dyspnea on exertion Aggravating: Reports Movement Alleviating: Reports Upright position Associated Signs and Symptoms: Reports Cough; Denies Wheezing, Chest pain with cough, Chest pain, Fever, Chills, Diaphoresis, Nasal congestion, Dizziness, Calf pain, Calf swelling, Edema, Rapid breathing, Labored breathing or Decreased intake Pulmonary Embolism Risk Factors: Reports None Cardiac Risk Factors: Reports Diabetes and Hypertension Pseudomonas Risk Factors: Reports None Tuberculosis Risk Factors: Reports None Home Oxygen Use: No Recent Stress Test: No Recent Echo/LV Function: No Respiratory Distress: Mild Stridor Present: No Tracheal Deviation: No Subcutaneous Emphysema: No Accessory Muscle Use: No Retractions: Not Present Diminished Breath Sounds: Yes Prolonged Expiratory Phase: No Unable to Speak Full Sentences: No Fatigue: Yes Leg Swelling: No Pegn's Sign Present: No Grunting Respirations: No Kussmaul Respirations: No Review of Systems Review Of Systems Constitutional: Reports Malaise and Weakness Eyes: Reports No symptoms Ears, Nose, Mouth, Throat: Reports No symptoms Respiratory: Reports Cough and Short of air Cardiac: Reports No symptoms GI: Reports No symptoms : Reports No symptoms Skin: Reports No symptoms Neurological: Reports No symptoms Endocrine: Reports No symptoms Hematologic/Lymphatic: Reports No symptoms All Other Systems: Reviewed and Negative [facility] Social History Smoking and tobacco status: Current some day smoker History of recent travel: No Female Reproductive History Menstrual Hx Hysterectomy: No Hx Tubal Ligation: Yes Physical Exam Physical Exam Appearance: Reports Ill-appearing and Obese Ill-appearing: Moderate Pain Distress: Mild Eyes: Reports ZARA ENT: Reports Oropharynx normal Neck: Supple Respiratory: Reports Breath sounds diminished and Rhonchi Cardiovascular: Reports Pulses normal and Tachycardia GI/: Reports Soft and Nontender Musculoskeletal: Reports Limited ROM and Limited strength Skin: Reports Warm Neurological: Reports Sensation intact, Motor intact and Alert Psychiatric: Reports Affect appropriate, Mood appropriate, Anxious and Other (Relates that she was just released from custodial for stealing narcotics.) Interpretation Radiology Interpretation Radiology Interpretation By: Radiologist Radiology Results: Positive Exam Interpreted: Portable CXR Xray Comments: Questionable atelec vs infiltrate vs mass EKG Interpretation Time of EKG #1: 14:58 Rate: Tachy Rhythm: Sinus Ectopy: PVCs [place]: NL ST Segment: Normal Critical Care Note Critical Care Note Total Critical Care Time (mins): 0 Course Course Hematology/Chemistry: 08/04/21 04:53 08/04/21 04:53 Orders, Labs, Meds: Lab Review 08/03/21 08/03/21 08/03/21 14:45 14:45 17:00 WBC 5.71 RBC 4.39 Hgb 11.0 L Hct 35.1 L MCV 80.0 L MCH 25.1 L MCHC 31.3 L RDW Coeff of Nathan 14.1 Plt Count 241 Immature Gran % (Auto) 0.2 Neut % (Auto) 59.5 Lymph % (Auto) 32.4 [place] % (Auto) 7.5 Eos % (Auto) 0.0 Baso % (Auto) 0.4 Neut # (Auto) 3.4 Lymph # (Auto) 1.9 [place] # (Auto) 0.4 Eos # (Auto) 0.0 Baso # (Auto) 0.0 Immature Gran # (Auto) 0.0 Sodium 136.2 Potassium 3.72 Chloride 104.2 Carbon Dioxide 28.1 Anion Gap 7.62 BUN 12.8 Creatinine 0.63 Estimated GFR (MDRD) 94.00 BUN/Creatinine Ratio 20.31 Glucose 196.0 H Calcium 9.37 Magnesium 1.71 Total Bilirubin 0.31 AST 27.1 ALT 17.5 Alkaline Phosphatase 97.2 Troponin I 0.052 NT-Pro-B Natriuret Pep 712.000 H Total Protein 6.23 L Albumin 3.70 Globulin 2.53 Albumin/Globulin Ratio 1.46 Urine Color Yellow Urine Clarity Clear Urine pH 5.5 Ur Specific [employer] 1.015 Urine Protein 2+ H Urine Glucose (UA) Negative Urine Ketones Negative Urine Blood 1+ H Urine Nitrite Positive H Urine Bilirubin Negative Urine Urobilinogen 0.2 Ur Leukocyte Esterase Negative Urine Microscopic RBC 5-10 Urine Microscopic WBC 5-10 Ur Squamous Epith Cells 2-5 Ur Renal Epithelial Cell 2-5 Urine Bacteria 4+ Urine Opiates Screen Ur Oxycodone Screen Urine Methadone Screen Ur Propoxyphene Screen Ur Barbiturates Screen U Tricyclic Antidepress Ur Phencyclidine Scrn Ur Amphetamine Screen U Methamphetamines Scrn U Benzodiazepines Scrn Urine Cocaine Screen U Cannabinoids Screen SARS CoV-2 RNA Rapid CARON 08/03/21 08/03/21 17:00 17:30 WBC RBC Hgb Hct MCV MCH MCHC RDW Coeff of Nathan Plt Count Immature Gran % (Auto) Neut % (Auto) Lymph % (Auto) [place] % (Auto) Eos % (Auto) Baso % (Auto) Neut # (Auto) Lymph # (Auto) [place] # (Auto) Eos # (Auto) Baso # (Auto) Immature Gran # (Auto) Sodium Potassium Chloride Carbon Dioxide Anion Gap BUN Creatinine Estimated GFR (MDRD) BUN/Creatinine Ratio Glucose Calcium Magnesium Total Bilirubin AST ALT Alkaline Phosphatase Troponin I NT-Pro-B Natriuret Pep Total Protein Albumin Globulin Albumin/Globulin Ratio Urine Color Urine Clarity Urine pH Ur Specific [employer] Urine Protein Urine Glucose (UA) Urine Ketones Urine Blood Urine Nitrite Urine Bilirubin Urine Urobilinogen Ur Leukocyte Esterase Urine Microscopic RBC Urine Microscopic WBC Ur Squamous Epith Cells Ur Renal Epithelial Cell Urine Bacteria Urine Opiates Screen Negative Ur Oxycodone Screen Negative Urine Methadone Screen Negative Ur Propoxyphene Screen Negative Ur Barbiturates Screen Negative U Tricyclic Antidepress Negative Ur Phencyclidine Scrn Negative Ur Amphetamine Screen Positive H U Methamphetamines Scrn Positive H U Benzodiazepines Scrn Negative Urine Cocaine Screen Negative U Cannabinoids Screen Negative SARS CoV-2 RNA Rapid CARON Negative Orders Category Date Time Status EKG-(ED ONLY) Stat CARDIO 08/03/21 14:50 Completed URINALYSIS COLLECTION (NURSING) ONCE CARE 08/03/21 15:23 Completed CBC W/ AUTO DIFF Stat LAB 08/03/21 14:45 Completed COMPREHENSIVE METABOLIC PANEL Stat LAB 08/03/21 14:45 Completed DRUG SCREEN, URINE, RAPID Stat LAB 08/03/21 17:00 Completed MAGNESIUM Stat LAB 08/03/21 14:45 Completed NT-PROBNP Stat LAB 08/03/21 14:45 Completed TROPONIN I Stat LAB 08/03/21 14:45 Completed URINALYSIS C & S IF INDICATED Stat LAB 08/03/21 17:00 Completed URINE CULTURE Stat LAB 08/03/21 17:00 Results Ceftriaxone/D5w 1 gm Premix [Rocephin 1 gm/50 ml D5w] MEDS 08/03/21 16:12 Discontinued 1 gm in 50 ml IV ONCE Labetalol HCl [Trandate] MEDS 08/03/21 15:23 Discontinued 20 mg IVP ONCE ONE Labetalol HCl [Trandate] MEDS 08/03/21 16:12 Discontinued 20 mg IVP ONCE ONE CHEST, 1V AP ONLY Stat RADS 08/03/21 14:50 Completed Medications Discontinued Medications Generic Name Dose Route Start Last Admin Trade Name Freq PRN Reason Stop Dose Admin Hydrocodone Bitart/Acetaminophen 1 tab 08/04/21 06:03 08/04/21 06:14 Hydrocodone Bit/Acetaminophen 10/325 Mg Tablet PO 08/04/21 06:04 1 tab ONCE STA Administration Albuterol/Ipratropium 3 ml 08/03/21 19:07 Ipratropium/Albuterol Vial.Neb NEB RTQ6H PRN Wheezing Aspirin 81 mg 08/04/21 09:00 08/04/21 08:15 Aspirin 81 Mg Tablet. PO 81 mg DAILY BERNARD Administration Atorvastatin Calcium 80 mg 08/03/21 19:30 08/04/21 08:15 Atorvastatin Calcium 20 Mg Tablet PO 80 mg DAILY BERNARD Administration Clonidine HCl 1 patch 08/04/21 02:12 08/04/21 02:30 Clonidine 0.1 Mg Patch.Tdwk TD 08/04/21 02:13 1 patch ONCE ONE Administration Clopidogrel Bisulfate 75 mg 08/03/21 19:30 08/04/21 08:15 Clopidogrel Bisulfate 75 Mg Tablet PO 75 mg DAILY BERNARD Administration Diltiazem HCl 180 mg 08/03/21 19:30 08/04/21 08:15 Diltiazem Hcl 180 Mg Cap.Er.24h PO 180 mg DAILY BERNARD Administration Duloxetine HCl 60 mg 08/04/21 09:00 08/04/21 08:15 Duloxetine Hcl 30 Mg Capsule.Dr PO 60 mg DAILY BERNARD Administration Enalapril Maleate 10 mg 08/04/21 09:00 08/04/21 08:15 Enalapril Maleate 5 Mg Tablet PO 10 mg BID BERNARD Administration Enoxaparin Sodium 40 mg 08/03/21 19:30 08/04/21 08:14 Enoxaparin Sodium 40 Mg/0.4 Ml Syr SUBCUT 40 mg DAILY BERNARD Administration Furosemide 20 mg 08/03/21 19:12 08/03/21 19:15 Furosemide Inj 20 Mg/2 Ml Vial IVP 08/03/21 19:13 20 mg ONCE ONE Administration Furosemide 20 mg 08/03/21 19:13 08/04/21 08:15 Furosemide 20 Mg Tablet PO 20 mg BIDAC PRN Administration Swelling CEFTRIAXONE/D5W 1 GM PREMIX 1 gm in 50 mls @ 75 mls/hr 08/03/21 16:12 08/03/21 16:34 Rocephin 1 Gm/50 Ml D5w IV 08/03/21 16:51 75 mls/hr ONCE ONE Administration Levofloxacin/Dextrose 750 mg in 150 mls @ 100 mls/hr 08/03/21 19:30 08/03/21 21:04 Levaquin 750 Mg/150 Ml D5w IV 08/06/21 19:29 100 mls/hr DAILY BERNARD Administration Levofloxacin/Dextrose 750 mg in 150 mls @ 100 mls/hr 08/04/21 21:00 Levaquin 750 Mg/150 Ml D5w IV 08/06/21 19:29 BEDTIME BERNARD Labetalol HCl 20 mg 08/03/21 15:23 08/03/21 15:32 Labetalol Hcl 20 Mg/4 Ml Disp.Syrin IVP 08/03/21 15:24 20 mg ONCE ONE Administration Labetalol HCl 20 mg 08/03/21 16:12 08/03/21 16:33 Labetalol Hcl 20 Mg/4 Ml Disp.Syrin IVP 08/03/21 16:13 20 mg ONCE ONE Administration Lisinopril 20 mg 08/04/21 02:11 08/04/21 02:30 Lisinopril 10 Mg Tablet PO 08/04/21 02:12 20 mg ONCE STA Administration Magnesium Oxide 400 mg 08/03/21 19:30 08/04/21 08:15 Magnesium Oxide 400 Mg Tablet PO 400 mg BID BERNARD Administration Metoprolol Tartrate 50 mg 08/03/21 19:30 08/04/21 08:15 Metoprolol Tartrate 50 Mg Tablet PO 50 mg DAILY BERNARD Administration Potassium Chloride 10 meq 08/03/21 19:30 08/04/21 08:15 Potassium Chloride 10 Meq Capsule.Er PO 10 meq BID BERNARD Administration Ropinirole HCl 1 mg 08/03/21 19:30 08/04/21 14:46 Ropinirole Hcl 0.25 Mg Tablet PO 1 mg TID BERNARD Administration Sodium Chloride 1 syr 08/04/21 06:00 08/04/21 14:00 0.9% Sodium Chloride 10 Ml Disp.Syrin IVF 1 syr Q8HR BERNARD Administration Vital Signs: Temp Pulse Resp BP Pulse Ox 08/03/21 14:28 98.3 F 112 H 22 139/108 H 99 Discharge Plan Discharge Patient Disposition: PLACED OBSERVATION Discharge Problem: Hypertension Qualifiers: Hypertension type: primary hypertension Qualified Code(s): I10 - Essential (ernie chris) hypertension COPD (chronic obstructive pulmonary disease) Qualifiers: COPD type: COPD with acute exacerbation Qualified Code(s): J44.1 - Chronic obstructive pulmonary disease with (acute) exacerbation ED Provider: BOB BERMUDEZ Condition: Stable Physician Progress Note: Difficulty arranging disposition, difficulty with HR and BP since off her beta- andre and calcium channel andre, questionable pneumonia, mild UTI. Place in observation.[]
[2021-08-03 15:01] LABS: BASOPHILS % (AUTO) 0.4 % (0.0-3.0); HEMATOCRIT 35.1 % (37.0-47.0); IMMATURE GRANULOCYTE % (AUTO) 0.2 % (0.0-5.0); LYMPHOCYTES # (AUTO) 1.9 K/uL (0.60-3.4); LYMPHOCYTES % (AUTO) 32.4 (10.0-50.0); MEAN CORPUSCULAR HEMOGLOBIN 25.1 pg (27.0-31.0); MEAN CORPUSCULAR HGB CONC 31.3 (31.8-35.4); MONOCYTES # (AUTO) 0.4 K/uL (0.4-2.0); MONOCYTES % (AUTO) 7.5 (0-10); NEUTROPHILS # (AUTO) 3.4 K/ul (2.0-6.9); NEUTROPHILS % (AUTO) 59.5 % (42.2-75.2); PLATELET COUNT 241 10^3/uL (140-440); RDW COEFFICIENT OF VARIATION 14.1 % (11.6-14.8); RED BLOOD COUNT 4.39 10^6/ul (4.20-5.40); WHITE BLOOD COUNT 5.71 K/ul (4.6-10.2)
[2021-08-03 15:16] LABS: ALANINE AMINOTRANSFERASE 17.5 U/L (0-35); ALBUMIN 3.7 g/dL (3.5-5.0); ALKALINE PHOSPHATASE 97.2 U/L (53-141); ASPARTATE AMINO TRANSFERASE 27.1 U/L (14-36); BILIRUBIN,TOTAL 0.31 mg/dL (0.2-1.3); BLOOD UREA NITROGEN 12.8 mg/dL (7-17); CALCIUM 9.37 mg/dL (8.4-10.2); CARBON DIOXIDE 28.1 mmol/L (22-30.0); CHLORIDE 104.2 mmol/L (98-107); CREATININE 0.63 mg/dL (0.60-1.30); MAGNESIUM 1.71 mg/dL (1.6-2.3); POTASSIUM 3.72 mmol/L (3.5-5.1); SODIUM 136.2 mmol/L (134.5-145); TOTAL PROTEIN 6.23 g/dL (6.3-8.2)
[2021-08-03] MEDS ORDERED: TRANDATE IVP ONE ×2 (15:23→16:12)
[2021-08-03 15:28] LABS: TROPONIN I 0.052 ng/ml (0.0000-0.120)
--- NOTE | 2021-08-03 15:28 | DI ---
EXAM: One-view chest. HISTORY: Chronic obstructive pulmonary disease. COMPARISON: 06/15/2017 chest x-ray. FINDINGS: Increased density is present in the right suprahilar region. Increased linear markings ar e present in the right lung base. The cardiac silhouette is upper limits normal. There is no pulmonary edema or pleural effusion. No acute abnormality involving the osseous structures. IMPRESSION: #1. Increased density in the right suprahilar region may be infectious/inflammatory versus neoplasti c. When clinically appropriate, AP and lateral chest x-ray is recommended for further assessment. #2. Nonspecific density in the right lung base which could represent atelectasis and/or pneumonia. There is no pleural effusion.
[2021-08-03] MEDS ORDERED: ROCEPHIN 1 GM/50 ML D5W 1 GM/50 ML BAG IV ONE (16:12)
[2021-08-03 17:22] LABS: BILIRUBIN,URINE Negative (NEGATIVE); CLARITY,URINE Clear (CLEAR); COLOR,URINE Yellow (YELLOW); GLUCOSE, URINE (UA) Negative (NEGATIVE); KETONES,URINE Negative (NEGATIVE); LEUKOCYTE ESTERASE ,URINE Negative (NEGATIVE); NITRITE,URINE Positive (NEGATIVE); PH,URINE 5.5 (5-9); PROTEIN,URINE 2+ (NEGATIVE); URINE, BLOOD 1+ (NEGATIVE); UROBILINOGEN,URINE 0.2 (0.2)
[2021-08-03 17:29] LABS: BACTERIA,URINE 4+ (NOT PRESENT)
[2021-08-03 17:33] LABS: AMPHETAMINE SCREEN,URINE POSITIVE (NEGATIVE); BARBITURATE SCREEN,URINE NEGATIVE (NEGATIVE); BENZODIAZEPINES SCREEN,URINE NEGATIVE (NEGATIVE); CANNABINOID SCREEN,URINE NEGATIVE (NEGATIVE); COCAIN SCREEN,URINE NEGATIVE (NEGATIVE); METHADONE URINE SCREEN NEGATIVE (NEGATIVE); METHAMPHETAMINES SCREEN,URINE POSITIVE (NEGATIVE); OPIATE SCREEN,URINE NEGATIVE (NEGATIVE); OXYCODONE URINE SCREEN NEGATIVE (NEGATIVE); PHENCYCLIDINE SCREEN,URINE NEGATIVE (NEGATIVE); PROPOXYPHENE URINE SCREEN NEGATIVE (NEGATIVE); TRICYCLIC ANTIDEPRESSANTS URIN NEGATIVE (NEGATIVE)
[2021-08-03] MEDS ORDERED: DUONEB NEB PRN (19:07)
[2021-08-03] MEDS ORDERED: LASIX IVP ONE (19:12)
[2021-08-03] MEDS ORDERED: LASIX TAB PO PRN (19:13)
[2021-08-03] MEDS ORDERED: LEVAQUIN 750 MG/150 ML D5W 750 MG/150 ML BAG IV SCH (19:30)
[2021-08-03 20:12] VITALS: BMI 33.0
[2021-08-03] MEDS: LOVENOX SUBCUT SCH (21:04)
[2021-08-03] MEDS: PLAVIX PO SCH (21:05)
[2021-08-03] MEDS: MICRO-K CAP PO SCH ×2 (21:05→21:10)
[2021-08-03] MEDS: CARDIZEM CD PO SCH (21:05)
[2021-08-03] MEDS: REQUIP PO SCH ×2 (21:05→21:10)
[2021-08-03] MEDS: LIPITOR PO SCH (21:05)
[2021-08-03] MEDS: MAG-OX PO SCH ×5 (21:05→21:21)
[2021-08-03] MEDS: LOPRESSOR PO SCH (21:06)
[2021-08-04] MEDS ORDERED: ZESTRIL PO STA (02:11)
[2021-08-04] MEDS ORDERED: CATAPRES-TTS 1 TD ONE (02:12)
[2021-08-04 05:49] LABS: BASOPHILS % (AUTO) 0.4 % (0.0-3.0); HEMATOCRIT 34.6 % (37.0-47.0); HEMOGLOBIN 10.6 g/dl (12.0-16.0); IMMATURE GRANULOCYTE % (AUTO) 0.4 % (0.0-5.0); LYMPHOCYTES # (AUTO) 1.4 K/uL (0.60-3.4); MEAN CORPUSCULAR HEMOGLOBIN 24.6 pg (27.0-31.0); MEAN CORPUSCULAR HGB CONC 30.6 (31.8-35.4); MEAN CORPUSCULAR VOLUME 80.3 fl (81.0-99.0); MONOCYTES # (AUTO) 0.4 K/uL (0.4-2.0); MONOCYTES % (AUTO) 8.6 (0-10); NEUTROPHILS # (AUTO) 3.2 K/ul (2.0-6.9); NEUTROPHILS % (AUTO) 62.6 % (42.2-75.2); PLATELET COUNT 234 10^3/uL (140-440); RDW COEFFICIENT OF VARIATION 14.2 % (11.6-14.8); RED BLOOD COUNT 4.31 10^6/ul (4.20-5.40); WHITE BLOOD COUNT 5.11 K/ul (4.6-10.2)
[2021-08-04 05:59] LABS: ALANINE AMINOTRANSFERASE 17.2 U/L (0-35); ALBUMIN 3.54 g/dL (3.5-5.0); ALKALINE PHOSPHATASE 87.2 U/L (53-141); ASPARTATE AMINO TRANSFERASE 26.3 U/L (14-36); BILIRUBIN,TOTAL 0.2 mg/dL (0.2-1.3); BLOOD UREA NITROGEN 8.5 mg/dL (7-17); CALCIUM 9.28 mg/dL (8.4-10.2); CARBON DIOXIDE 30.1 mmol/L (22-30.0); CHLORIDE 107.1 mmol/L (98-107); CREATININE 0.61 mg/dL (0.60-1.30); GLUCOSE 132.7 mg/dL (74-106); POTASSIUM 4.25 mmol/L (3.5-5.1); SODIUM 138.1 mmol/L (134.5-145); TOTAL PROTEIN 6.03 g/dL (6.3-8.2)
[2021-08-04] MEDS ORDERED: NORCO 10-325 PO STA (06:03)
[2021-08-04] MEDS: REQUIP PO SCH ×2 (08:14→14:46)
[2021-08-04] MEDS: LOVENOX SUBCUT SCH (08:14)
[2021-08-04] MEDS: MAG-OX PO SCH (08:15)
[2021-08-04] MEDS: CARDIZEM CD PO SCH (08:15)
[2021-08-04] MEDS: LOPRESSOR PO SCH (08:15)
[2021-08-04] MEDS: PLAVIX PO SCH (08:15)
[2021-08-04] MEDS: MICRO-K CAP PO SCH (08:15)
[2021-08-04] MEDS: LIPITOR PO SCH (08:15)
[2021-08-04] MEDS ORDERED: VASOTEC PO SCH (09:00)
[2021-08-04] MEDS ORDERED: CYMBALTA PO SCH (09:00)
[2021-08-04] MEDS ORDERED: ASPIRIN EC PO SCH (09:00)
[2021-08-04] MEDS ORDERED: FLUZONE HIGH-DOSE QUAD 2021-22 IM ONE (10:40)
--- NOTE | 2021-08-04 13:59 | PCM.DC ---
Final Diagnosis: Admit Dx - Uncontrolled hypertension. COPD exacerbation. Discharge Dx - Hypertension - controlled. COPD exacerbation - resolved. Date of admit: 2021 Date of discharge: 2021 Physical Exam Appearance: Well-appearing and Obese Ill-appearing: None Pain Distress: None Eyes: ZARA ENT: Oropharynx normal Neck: Supple Respiratory: Airway patent and Breath sounds clear Cardiovascular: RRR and Pulses normal GI/: Soft and Nontender Musculoskeletal: Normal strength and ROM intact Skin: Warm and Dry Neurological: Sensation intact, Motor intact and Alert Psychiatric: Affect appropriate and Mood appropriate (1) Uncontrolled hypertension: Status: Acute Code(s): I10 - Essential (primary) hypertension SNOMED Code(s): 99759257 (2) COPD exacerbation: Status: Acute Code(s): J44.1 - Chronic obstructive pulmonary disease with (acute) exacerbation SNOMED Code(s): 201363508 (3) Abnormal chest xray: Status: Acute Code(s): R93.89 - Abnormal findings on diagnostic imaging of other specified body structures SNOMED Code(s): 533557239 (4) UTI (urinary tract infection): Status: Acute Code(s): N39.0 - Urinary tract infection, site not specified SNOMED Code(s): 68939631 Reason for Hospitalization: Came to ED with high BP and pulse, dyspnea - did not have any other medications. Placed in observation to stabilize. Prognosis/Condition at Discharge: Good. Stable. Medications at Discharge: Ambulatory Orders Medication Instructions Recorded albuterol sulfate 1 vial NEB RTQ8H PRN 05/07/13 clopidogrel 75 mg tablet 75 mg PO DAILY 05/07/13 enalapril maleate 5 mg tablet 10 mg PO BID 05/07/13 furosemide 20 mg tablet 20 mg PO BIDAC PRN 05/07/13 magnesium oxide 400 mg (241.3 mg 400 mg PO BID 05/07/13 magnesium) tablet potassium chloride 10 mEq 10 meq PO BID 05/07/13 tablet,extended release (Klor-Con) ropinirole 0.25 mg tablet 1 mg PO TID 05/07/13 fluticasone propionate 50 2 spray NS DAILY PRN 11/25/13 mcg/actuation nasal spray,suspension atorvastatin 20 mg tablet (Lipitor) 80 mg PO DAILY 01/15/14 duloxetine 20 mg capsule,delayed 60 mg PO DAILY 11/19/14 release (Cymbalta) aspirin 81 mg tablet,delayed 81 mg PO DAILY 12/30/18 release insulin aspart U-100 100 unit/mL 100 unit SQ DIRECTED PRN 12/30/18 (3 mL) subcutaneous pen (Novolog Flexpen U-100 Insulin aspart) insulin glargine 100 unit/mL (3 10 unit SQ BID 12/30/18 mL) subcutaneous pen (Lantus Solostar U-100 Insulin) metoprolol tartrate 50 mg tablet 50 mg PO DAILY 12/30/18 naproxen sodium 220 mg capsule 220 mg PO BID PRN 12/30/18 hydrocodone 10 mg-acetaminophen 1 ea PO Q6HR #10 tablet 01/28/19 325 mg tablet albuterol sulfate 90 mcg/actuation 2 puff INHALATION Q4-6H PRN #8.5 g 08/03/21 aerosol inhaler diltiazem HCl 180 mg 180 mg PO DAILY #30 cap 08/03/21 capsule,extended release 24 hr (Cardizem CD) levofloxacin 500 mg tablet 500 mg PO DAILY #7 tab 08/03/21 Lab/Diagnostics: Laboratory Tests 08/03/21 08/03/21 08/03/21 14:45 14:45 17:00 WBC 5.71 RBC 4.39 Hgb 11.0 L Hct 35.1 L MCV 80.0 L MCH 25.1 L MCHC 31.3 L RDW Coeff of Nathan 14.1 Plt Count 241 Immature Gran % (Auto) 0.2 Neut % (Auto) 59.5 Lymph % (Auto) 32.4 [place] % (Auto) 7.5 Eos % (Auto) 0.0 Baso % (Auto) 0.4 Neut # (Auto) 3.4 Lymph # (Auto) 1.9 [place] # (Auto) 0.4 Eos # (Auto) 0.0 Baso # (Auto) 0.0 Immature Gran # (Auto) 0.0 Sodium 136.2 Potassium 3.72 Chloride 104.2 Carbon Dioxide 28.1 Anion Gap 7.62 BUN 12.8 Creatinine 0.63 Estimated GFR (MDRD) 94.00 BUN/Creatinine Ratio 20.31 Glucose 196.0 H Calcium 9.37 Magnesium 1.71 Total Bilirubin 0.31 AST 27.1 ALT 17.5 Alkaline Phosphatase 97.2 Troponin I 0.052 NT-Pro-B Natriuret Pep 712.000 H Total Protein 6.23 L Albumin 3.70 Globulin 2.53 Albumin/Globulin Ratio 1.46 Urine Color Yellow Urine Clarity Clear Urine pH 5.5 Ur Specific [place] 1.015 Urine Protein 2+ H Urine Glucose (UA) Negative Urine Ketones Negative Urine Blood 1+ H Urine Nitrite Positive H Urine Bilirubin Negative Urine Urobilinogen 0.2 Ur Leukocyte Esterase Negative Urine Microscopic RBC 5-10 Urine Microscopic WBC 5-10 Ur Squamous Epith Cells 2-5 Ur Renal Epithelial Cell 2-5 Urine Bacteria 4+ Urine Opiates Screen Ur Oxycodone Screen Urine Methadone Screen Ur Propoxyphene Screen Ur Barbiturates Screen U Tricyclic Antidepress Ur Phencyclidine Scrn Ur Amphetamine Screen U Methamphetamines Scrn U Benzodiazepines Scrn Urine Cocaine Screen U Cannabinoids Screen SARS CoV-2 RNA Rapid CARON 08/03/21 08/03/21 08/04/21 17:00 17:30 04:53 WBC 5.11 RBC 4.31 Hgb 10.6 L Hct 34.6 L MCV 80.3 L MCH 24.6 L MCHC 30.6 L RDW Coeff of Nathan 14.2 Plt Count 234 Immature Gran % (Auto) 0.4 Neut % (Auto) 62.6 Lymph % (Auto) 28.0 [place] % (Auto) 8.6 Eos % (Auto) 0.0 Baso % (Auto) 0.4 Neut # (Auto) 3.2 Lymph # (Auto) 1.4 [place] # (Auto) 0.4 Eos # (Auto) 0.0 Baso # (Auto) 0.0 Immature Gran # (Auto) 0.0 Sodium Potassium Chloride Carbon Dioxide Anion Gap BUN Creatinine Estimated GFR (MDRD) BUN/Creatinine Ratio Glucose Calcium Magnesium Total Bilirubin AST ALT Alkaline Phosphatase Troponin I NT-Pro-B Natriuret Pep Total Protein Albumin Globulin Albumin/Globulin Ratio Urine Color Urine Clarity Urine pH Ur Specific [place] Urine Protein Urine Glucose (UA) Urine Ketones Urine Blood Urine Nitrite Urine Bilirubin Urine Urobilinogen Ur Leukocyte Esterase Urine Microscopic RBC Urine Microscopic WBC Ur Squamous Epith Cells Ur Renal Epithelial Cell Urine Bacteria Urine Opiates Screen Negative Ur Oxycodone Screen Negative Urine Methadone Screen Negative Ur Propoxyphene Screen Negative Ur Barbiturates Screen Negative U Tricyclic Antidepress Negative Ur Phencyclidine Scrn Negative Ur Amphetamine Screen Positive H U Methamphetamines Scrn Positive H U Benzodiazepines Scrn Negative Urine Cocaine Screen Negative U Cannabinoids Screen Negative SARS CoV-2 RNA Rapid CARON Negative 08/04/21 04:53 WBC RBC Hgb Hct MCV MCH MCHC RDW Coeff of Nathan Plt Count Immature Gran % (Auto) Neut % (Auto) Lymph % (Auto) [place] % (Auto) Eos % (Auto) Baso % (Auto) Neut # (Auto) Lymph # (Auto) [place] # (Auto) Eos # (Auto) Baso # (Auto) Immature Gran # (Auto) Sodium 138.1 Potassium 4.25 Chloride 107.1 H Carbon Dioxide 30.1 H Anion Gap 5.15 BUN 8.5 Creatinine 0.61 Estimated GFR (MDRD) 98.00 BUN/Creatinine Ratio 13.93 Glucose 132.7 H D Calcium 9.28 Magnesium Total Bilirubin 0.20 AST 26.3 ALT 17.2 Alkaline Phosphatase 87.2 Troponin I NT-Pro-B Natriuret Pep Total Protein 6.03 L Albumin 3.54 Globulin 2.49 Albumin/Globulin Ratio 1.42 Urine Color Urine Clarity Urine pH Ur Specific [place] Urine Protein Urine Glucose (UA) Urine Ketones Urine Blood Urine Nitrite Urine Bilirubin Urine Urobilinogen Ur Leukocyte Esterase Urine Microscopic RBC Urine Microscopic WBC Ur Squamous Epith Cells Ur Renal Epithelial Cell Urine Bacteria Urine Opiates Screen Ur Oxycodone Screen Urine Methadone Screen Ur Propoxyphene Screen Ur Barbiturates Screen U Tricyclic Antidepress Ur Phencyclidine Scrn Ur Amphetamine Screen U Methamphetamines Scrn U Benzodiazepines Scrn Urine Cocaine Screen U Cannabinoids Screen SARS CoV-2 RNA Rapid CARON Chest X-ray: FINDINGS: Increased density is present in the right suprahilar region. Increased linear markings are present in the right lung base. The cardiac silhouette is upper limits normal. There is no pulmonary edema or pleural effusion. No acute abnormality involving the osseous structures. IMPRESSION: #1. Increased density in the right suprahilar region may be infectious/inflammatory versus neoplastic. When clinically appropriate, AP and lateral chest x-ray is recommended for further assessment. #2. Nonspecific density in the right lung base which could represent atelectasis and/or pneumonia. There is no pleural effusion. Education Provided to Patient and Family: HTN. COPD. Follow-ups: PCP within one week. Discharge Disposition: Home Hospital Course: 66 y/o female, just [place] intermediate, while incarcerated evidently lost track of her bag of medicines. Hx sig. HTN and COPD. DM Type II. Substance abuse. In ER, needed several IV med to control BP and HR. Determined that since her ED tx completed at night and unsure of her med. availability, placed in observa tion. COPD exac. not sig. CXR revealed some areas of infection vs mass. Plan is treat infection then see PCP to repeat CXR or order chest CT. Minor UTI as well. Tx with IV levaquin. She was able to obtain her medicine, evidently via someone other than her daughter who was incarcerated at the same time. This discharge evaluation done iniq-[id number] with duration of 20 minutes with further documentation following for a total of 40 minutes. Plan: Discharged home with Rx for levaquin. Resume home med. Diet (diabetic) and activity as tolerated. See PCP within a week. Advised of the importance of the follow-up CXR or chest CT.
[2021-08-04 14:00] VITALS: BP 140/75; TEMP 98.1
[2021-08-04] MEDS ORDERED: LEVAQUIN 750 MG/150 ML D5W 750 MG/150 ML BAG IV SCH (21:00)
== END 2021-08-04 16:00 | disposition home or self-care (01) ==
LOC: MEDSURG A 14:27 → ED 14:27 → MEDSURG A 20:00
PROVIDERS: ADMIT Emergency Medicine; ATTEND Emergency Medicine
DX: N39.0 Urinary tract infection, site not specified; Z51.81 Encounter for therapeutic drug level monitoring; R53.1 Weakness; R93.89 Abnormal findings on diagnostic imaging of other specified body structures; F41.8 Other specified anxiety disorders; Z65.9 Problem related to unspecified psychosocial circumstances; Z72.0 Tobacco use; R00.0 Tachycardia, unspecified; I10 Essential (primary) hypertension; E11.9 Type 2 diabetes mellitus without complications; E66.9 Obesity, unspecified; Z79.4 Long term (current) use of insulin; J44.1 Chronic obstructive pulmonary disease with (acute) exacerbation; Z79.899 Other long term (current) drug therapy; Z79.01 Long term (current) use of anticoagulants; I42.9 Cardiomyopathy, unspecified